=== PATIENT | female | born 1980 | race African-American/Black ===

== ENCOUNTER 2019-01-13 21:32 | Emergency (ER) | payer MEDICAID, OTHER ==
[~2019-01-13] VITALS: Ht 170.2 cm; Wt 86.0 kg
[2019-01-13] MEDS ORDERED: HYDROCODONE/ACETAMINOPHEN 5/325MG TABLET PO ONE (22:30)
[2019-01-13] MEDS ORDERED: IBUPROFEN 600MG TABLET PO ONE (23:15)
[2019-01-13 23:18] VITALS: BP 127/90
== END 2019-01-14 00:08 | disposition home or self-care (01) ==
LOC: ER 21:32
DX: S93.401A Sprain of unspecified ligament of right ankle, initial encounter (principal); S93.402A Sprain of unspecified ligament of left ankle, initial encounter; W01.0XXA Fall on same level from slipping, tripping and stumbling without subsequent striking against object, initial encounter; Y93.89 Activity, other specified; Y92.018 Other place in single-family (private) house as the place of occurrence of the external cause
CPT/HCPCS: 73610; 99283